=== PATIENT | male | born 1980 | race Caucasian/White ===

== ENCOUNTER → 2017-11-17 | Outpatient (CLI) | payer OTHER ==
--- NOTE | 2017-11-17 13:59 | Diagnostic Imaging Report ---
PROCEDURE:ELBOW THREE VIEWS BILATERAL TECHNIQUE:AP, lateral and oblique views left and right elbows INDICATION:Elbow pain; arthritis COMPARISON:None. FINDINGS: Both elbows are intact and in anatomic alignment. Joint space is normal. No erosion, periosteal reaction or sclerosis. No effusions. CONCLUSION: Normal study. Dictated by: Isreal De La Vega M.D. on 11/17/2017 at 14:00 Electronically approved by: Isreal De La Vega M.D. on 11/17/2017 at 14:00
== END ==
LOC: RAD 12:03
PROVIDERS: ATTEND Internal Medicine
DX: M25.522 Pain in left elbow (principal); M25.521 Pain in right elbow; M13.822 Other specified arthritis, left elbow; M13.821 Other specified arthritis, right elbow

== ENCOUNTER → 2018-05-20 | Outpatient (CLI) | payer OTHER ==
--- NOTE | 2018-05-21 11:31 | Diagnostic Imaging Report ---
PROCEDURE:L-SPINE COMPLETE COMPARISON:None. INDICATIONS:LOW BACK PAIN FINDINGS: There are five lumbar-type vertebral bodies. The vertebral bodies are well-aligned without evidence of spondylolisthesis. There are no fractures, lytic or blastic lesions. The disc-space heights are well-maintained. The sacroiliac joints are unremarkable. CONCLUSION: Unremarkable lumbar spine radiographs. Dictated by: AIMEE TA M.D. on 05/21/2018 at 11:40 Electronically approved by: AIMEE TA M.D. on 05/21/2018 at 11:40
== END ==
LOC: RAD 10:23
PROVIDERS: ATTEND Internal Medicine
DX: M54.5 Low back pain (principal)
CPT/HCPCS: 72110